=== PATIENT | female | born 1970 | race Two or more races ===

== ENCOUNTER → 2022-11-21 | Emergency (ER) | payer OTHER ==
[~2022-11-21] VITALS: Ht 160 cm; Wt 56.7 kg
== END | disposition home or self-care (01) ==
LOC: ER 10:31 → EDBD 10:48 → ER 10:48
DX: M46.28 Osteomyelitis of vertebra, sacral and sacrococcygeal region (principal); E06.3 Autoimmune thyroiditis

== ENCOUNTER 2023-02-28 05:55 | Day surgery (SDC) | payer OTHER ==
[~2023-02-28] VITALS: Ht 160 cm; Wt 63.5 kg
[2023-02-28] MEDS ORDERED: TRAM1TAB98 PO (10:43)
[2023-02-28] MEDS ORDERED: BACTRIM DS TAB1 EACH PO (10:43)
== END 2023-02-28 16:15 | disposition home or self-care (01) ==
LOC: CIR.AMB 05:55
PROVIDERS: ATTEND Surgery
DX: L05.01 Pilonidal cyst with abscess (principal); I10 Essential (primary) hypertension; Z20.822 Contact with and (suspected) exposure to COVID-19

== ENCOUNTER 2023-03-31 16:13 | Emergency (ER) | payer OTHER ==
[~2023-03-31] VITALS: Ht 160 cm; Wt 62.6 kg
[~2023-03-31 16:13] MED LIST: BACTRIM DS TAB1 EACH PO; TRAM1TAB98 PO
== END 2023-03-31 21:33 | disposition home or self-care (01) ==
LOC: ER 16:13
DX: T81.49XA Infection following a procedure, other surgical site, initial encounter (principal); Y92.89 Other specified places as the place of occurrence of the external cause; E06.3 Autoimmune thyroiditis

== ENCOUNTER 2023-04-03 12:16 | Inpatient (IN) | payer OTHER ==
[~2023-04-03] VITALS: Ht 160 cm; Wt 63.5 kg
--- NOTE | 2023-04-03 12:22 | NUR ---
PTE ALERTA Y ORIENTADA X3, REFIERE OPERADA DE QUISTE PILONIDAL. VIENE POR REFERIDO MEDICO DE DRA. RODO MCCALLUM, QUE LA VA A HOSPITALIZAR. SE JODI SV Y SE UBICA.
--- NOTE | 2023-04-03 14:52 | NUR ---
PTE ES EVALUADO POR DRA SHAH. SE ORIENTA A PTE SOBRE TRATAMIENTO MEDICO Y VERBALIZA QUE ACEPTA. SE EJECUTA ORDEN MEDICA EN CERVANTES TOTALIDAD.
== END 2023-04-12 16:52 | disposition home or self-care (01) | DRG 863 ==
LOC: ER 12:16 → SURG 15:02 → SURH 04-05 14:25
PROVIDERS: ADMIT Surgery; ATTEND Surgery
DX: T81.49XA Infection following a procedure, other surgical site, initial encounter (principal); L05.01 Pilonidal cyst with abscess; L03.317 Cellulitis of buttock; Z16.12 Extended spectrum beta lactamase (ESBL) resistance; B96.20 Unspecified Escherichia coli [E. coli] as the cause of diseases classified elsewhere; Z20.822 Contact with and (suspected) exposure to COVID-19